=== PATIENT | female | born 1995 | race Caucasian/White ===

== ENCOUNTER 2017-07-19 23:37 | Emergency (ER) | payer BC ==
[~2017-07-19] VITALS: Ht 167.6 cm; Wt 78.9 kg
[~2017-07-19 23:37] MED LIST: NO HOME MEDICATIONS
[2017-07-19 23:39] VITALS: BP 115/55; TEMP 98.2
[2017-07-19] MEDS ORDERED: AVIANE 0.02 MG-1 TAB PO (23:45)
[2017-07-20 00:37] VITALS: PULSE 84
== END 2017-07-20 00:42 | disposition home or self-care (01) ==
LOC: COL.ER 23:37
DX: S01.01XA Laceration without foreign body of scalp, initial encounter (principal); S09.90XA Unspecified injury of head, initial encounter; R55 Syncope and collapse; W22.8XXA Striking against or struck by other objects, initial encounter; W19.XXXA Unspecified fall, initial encounter; Y92.008 Other place in unspecified non-institutional (private) residence as the place of occurrence of the external cause

== ENCOUNTER 2017-07-29 13:11 | Emergency (ER) | payer BC ==
[~2017-07-29 13:11] MED LIST changes: +AVIANE 0.02 MG-1 TAB PO
[2017-07-29 13:15] VITALS: BP 109/68; PULSE 81; TEMP 97.9
== END 2017-07-29 13:20 | disposition home or self-care (01) ==
LOC: COL.ER 13:11
DX: S01.01XD Laceration without foreign body of scalp, subsequent encounter (principal)

== ENCOUNTER → 2019-07-27 | Outpatient (CLI) | payer BC | LOC: COL.RAD 10:04 | DX: N94.6 Dysmenorrhea, unspecified (principal) ==

== ENCOUNTER 2023-01-23 18:42 | Emergency (ER) | payer BC ==
[~2023-01-23] VITALS: Ht 167.6 cm; Wt 95.5 kg
[2023-01-23 18:47] VITALS: BP 143/89; TEMP 97.1
[2023-01-23 20:09] VITALS: PULSE 84
== END 2023-01-23 20:09 | disposition home or self-care (01) ==
LOC: COL.ER 18:42
DX: S09.90XA Unspecified injury of head, initial encounter (principal); S00.83XA Contusion of other part of head, initial encounter; Z28.310 Unvaccinated for COVID-19; W55.12XA Struck by horse, initial encounter